=== PATIENT | male | born 1940 | race Caucasian/White ===

== ENCOUNTER → 2016-05-25 | Outpatient (CLI) | payer MEDICARE | END | disposition home or self-care (01) | LOC: GMAL 13:10 | PROVIDERS: ATTEND Family Medicine | DX: Z12.5 Encounter for screening for malignant neoplasm of prostate (principal) ==

== ENCOUNTER → 2016-11-20 | Outpatient (CLI) | payer MEDICARE | LOC: GMAL 10:46 | PROVIDERS: ATTEND Family Medicine | DX: E55.9 Vitamin D deficiency, unspecified (principal) ==

== ENCOUNTER → 2017-02-05 | Outpatient (CLI) | payer MEDICARE | END | disposition home or self-care (01) | LOC: GMAL 13:05 | PROVIDERS: ATTEND Family Medicine | DX: R22.0 Localized swelling, mass and lump, head (principal); I50.89 Other heart failure ==

== ENCOUNTER 2017-02-20 07:51 | Day surgery (SDC) | payer MEDICARE ==
[~2017-02-20 07:51] MED LIST: LACTATED RINGERS 1,000 ML ONE
[2017-02-20] MEDS ORDERED: MIDAZOLAM INJ 2 MG/2 ML VIAL ONE (08:42)
[2017-02-20] MEDS ORDERED: fentaNYL CITRATE INJ 50 MCG/ML AMP ONE (08:42)
[2017-02-20 09:32] VITALS: TEMP 97
--- NOTE | 2017-02-20 09:34 | OP ---
DATE OF PROCEDURE: 02/20/17 PREPROCEDURE DIAGNOSIS: 1. Screening colonoscopy. POSTPROCEDURE DIAGNOSIS: 1. Ileocolonic anastomosis. 2. Diverticulosis. 3. Colonic polyp. 4. Internal hemorrhoids. PROCEDURE: 1. Colonoscopy. SURGEON: Case Sharif MD SEDATION: The patient was sedated via IV propofol by the Anesthesia Department. COMPLICATIONS: No immediate complications. CONSENT: Prior to the procedure, risks, benefits and alternatives to the therapy were discussed with the patient. The risks included bleeding, infection , perforation and . The patient agreed to the procedure and signed a consent. Preprocedure anesthesia assessment and examination revealed no contraindication to sedation. Airway examination demonstrated a Mallampati class type 2, ASA grade assessment type 2. Throughout the procedure, the patient's blood pressure , pulse and oxygen saturation were monitored continuously. PROCEDURE: The patient was placed in the left lateral decubitus position and a rectal examination was performed. The rectal examination was within normal limits. The Olympus colonoscope was passed through the anus, into the rectum, traversing the colon to the level of the proximal transverse colon were an ileocolonic anastomosis was found. The scope was retracted and the mucosa was visualized. The entirety of the exam was performed with direct visualization. Retroflexion was performed in the rectum. Preparation quality was good. The withdrawal time was greater than 6 minutes. The patient tolerated the procedure well. Noted that the appendiceal orifice was not visualized as an ileocolonic anastomosis was seen from prior surgery. FINDINGS: 1. An intact ileocolonic anastomosis, [id number] was seen in the proximal transverse colon. The anastomosis was healthy appearing. 2. A small, sessile polyp in the sigmoid colon was seen, measuring 6 mm. The polyp was resected through cold snare and completely retrieved. 3. Mild to moderate diverticulosis was seen in the sigmoid colon. 4. Non-bleeding, large internal hemorrhoids were seen on retroflexion. IMPRESSION: 1. Ileocolonic anastomosis. 2. Small, sessile polyp in the sigmoid colon, resected and retrieved. 3. Mild to moderate diverticulosis in the sigmoid colon. 4. Large internal hemorrhoids. RECOMMENDATION: 1. Return home. 2. Resume diet. 3. Resume previous medications. 4. Followup pathology results. 5. If evidence of adenomatous tissue in polyp, repeat colonoscopy in five years for surveillance. 6. Return to my clinic (Dr. Baird) in case any questions or new symptomatology arises. 7. Return to referring physician as previously scheduled. 8. Findings were discussed with the patient and the patient's family. All questions were answered. #[id number] [facility]
[2017-02-20 09:52] VITALS: BP 130/65; O2SAT 97
[2017-02-20] MEDS ORDERED: LIDOCAINE 1% 10 ML VIAL INJ ONE (10:00)
[2017-02-20] MEDS ORDERED: PROPOFOL 200 MG/20 ML VIAL IV ONE (10:00)
== END 2017-02-20 09:40 | disposition home or self-care (01) ==
LOC: AMB 07:51
PROVIDERS: ATTEND Internal Medicine Gastroenterology
DX: Z12.11 Encounter for screening for malignant neoplasm of colon (principal); D12.5 Benign neoplasm of sigmoid colon; K57.30 Diverticulosis of large intestine without perforation or abscess without bleeding; K63.89 Other specified diseases of intestine; K64.8 Other hemorrhoids; E78.00 Pure hypercholesterolemia, unspecified; I10 Essential (primary) hypertension; I25.10 Atherosclerotic heart disease of native coronary artery without angina pectoris; E66.9 Obesity, unspecified; Z68.28 Body mass index [BMI] 28.0-28.9, adult; I25.2 Old myocardial infarction; Z86.010 Personal history of colon polyps; Z79.82 Long term (current) use of aspirin; Z79.899 Other long term (current) drug therapy
CPT/HCPCS: 00810; 45385; 88305; J2250; J3010; J3490; J7120

== ENCOUNTER → 2017-08-19 | Outpatient (CLI) | payer MEDICARE | LOC: GMAL 11:56 | PROVIDERS: ATTEND Family Medicine | DX: D51.3 Other dietary vitamin B12 deficiency anemia (principal); R53.82 Chronic fatigue, unspecified; E55.9 Vitamin D deficiency, unspecified; Z12.5 Encounter for screening for malignant neoplasm of prostate | CPT/HCPCS: 82306; 82607; 84443; G0103 ==

== ENCOUNTER → 2017-09-13 | Outpatient (CLI) | payer MEDICARE ==
--- NOTE | 2017-09-13 09:57 | RAD ---
EXAM DESCRIPTION: Knee,Right Complete CLINICAL HISTORY: Knee pain COMPARISON: None. TECHNIQUE: 4 views FINDINGS: Loss of medial joint space is observed. Medial femoral and tibial osteophyte formation is observed. Patellofemoral joint arthritis is noted. A small joint effusion is seen. Some chondrocalcinosis is observed in the lateral joint compartment. IMPRESSION: Tricompartmental joint degenerative changes are observed most pronounced in the medial joint compartment. Electronically signed by: Sunday Spears MD 09/13/2017 9:56 AM CDT
--- NOTE | 2017-09-13 09:58 | RAD ---
EXAM DESCRIPTION: Pelvis CLINICAL HISTORY: HIP PN COMPARISON: None. TECHNIQUE: AP pelvis FINDINGS: Degenerative changes are observed in the lower lumbar spine. Pelvis and hips are unremarkable. No fracturing is detected. Calcific atherosclerotic changes observed in the iliac and femoral vessels. IMPRESSION: No fracturing is detected. Electronically signed by: Sunday Spears MD 09/13/2017 9:57 AM CDT
== END ==
LOC: RAD 09:01
PROVIDERS: ATTEND Orthopaedic Surgery
DX: M25.561 Pain in right knee (principal); M25.551 Pain in right hip

== ENCOUNTER → 2017-12-26 | Outpatient (CLI) | payer MEDICARE ==
--- NOTE | 2017-12-26 11:45 | RAD ---
EXAM DESCRIPTION: Knee,Left Complete CLINICAL HISTORY: 77 years Male, KNEE PAIN COMPARISON: None. FINDINGS: Four views of the left knee show no acute fracture or malalignment. A small left knee joint effusion is noted. Mild degenerative changes are noted in the medial and patellofemoral compartments including slight medial joint space narrowing. Vascular calcifications are noted. IMPRESSION: Mild degenerative changes in the medial and patellofemoral compartments with a small left knee joint effusion. Electronically signed by: Mane Stanley MD 12/26/2017 11:43 AM CDT
== END ==
LOC: RAD 07:33
PROVIDERS: ATTEND Orthopaedic Surgery
DX: M25.562 Pain in left knee (principal); M12.862 Other specific arthropathies, not elsewhere classified, left knee; M25.462 Effusion, left knee

== ENCOUNTER → 2018-03-12 | Outpatient (CLI) | payer MEDICARE | LOC: LAB.O 09:04 | PROVIDERS: ATTEND Orthopaedic Surgery | DX: Z01.818 Encounter for other preprocedural examination (principal) ==

== ENCOUNTER 2018-04-08 05:51 | Inpatient (IN) | payer MEDICARE ==
--- NOTE | 2018-04-04 08:15 | HP ---
CHIEF COMPLAINT: Left knee pain. HISTORY OF PRESENT ILLNESS: Mr. Montesinos has a history of pain that he has been undergoing treatment for. Unfortunately, he has failed to gain relief and the pain he is having continues to interrupt his daily activities. He has a diagnosis of advanced arthritis and because of his failure of conservative measures, he has requested operative intervention. After discussing the risks, benefits and alternatives to that, he has given informed consent for total knee arthroplasty. PAST SURGICAL HISTORY: 1. Meniscectomy. 2. Lumbar fusion. 3. Achilles tendon repair. 4. Colonoscopy. MEDICATIONS: 1. Metoprolol. 2. Simvastatin. 3. Amlodipine. 4. Triamterene. 5. Aspirin. ALLERGIES: LISINOPRIL, LOSARTAN. CODE STATUS: Full code. IMMUNIZATIONS: Up to date. FAMILY HISTORY: None pertinent to today's complaint. SOCIAL HISTORY: The patient does not drink, smoke or use any illicit drugs. REVIEW OF SYSTEMS: Negative except as indicated in the History of Present Illness. PHYSICAL EXAMINATION: VITAL SIGNS: Blood pressure 164/84. Pulse 70. Height 5'11". Weight 214 pounds. MENTAL STATUS: The patient is awake, alert, and is able to give a good history and participate in the physical. The patient is oriented to person, place and time. SKIN: Normal tone and turgor. HEENT: Normocephalic, atraumatic. Pupils equal, round and reactive. Mucosal membranes are moist. NECK: Normal range of motion. No thyromegaly, no lymphadenopathy. CHEST: Normal respiratory excursion. CARDIAC: Regular rate and rhythm. No murmurs, rubs or gallops. MUSCULOSKELETAL: Bilateral upper extremities show full active range of motion without pain. He has intact sensation. They are warm and well perfused. There is no deformity, no crepitus. Strength is 5/5. The right lower extremity shows full range of motion of the hip. He does have some pain with range of motion of the knee as well as pain with palpation. He does have some crepitus, but does maintain full extension with flexion to 120 degrees. The left lower extremity shows no significant pain with range of motion of the hip, however, range of motion of the knee causes both crepitus and pain. The extremity is warm and well perfused. Sensation is intact. He has no varus/valgus or anterior/posterior laxity. He has severe pain with palpation diffusely. IMAGING: X-rays show advanced arthritis. ASSESSMENT: 1. Arthritis. PLAN: The plan at this point is for total knee arthroplasty. We have discussed the risks, benefits, and alternatives to that and the patient has given informed consent. #[id number] MTDD
[2018-04-08] MEDS ORDERED: VANCOMYCIN HCL INJ 1,000 MG VIAL IVPB ONE ×3 (05:54→19:25)
[2018-04-08] MEDS ORDERED: ceFAZolin SODIUM 1 GM VIAL ONE ×2 (05:54→06:28)
[2018-04-08] MEDS ORDERED: LACTATED RINGERS 1,000 ML ONE (05:54)
[2018-04-08] MEDS ORDERED: SODIUM CHL 0.9% 100ML MINI-BAG 100 ML IVPB ONE (05:54)
[2018-04-08] MEDS ORDERED: TRANEXAMIC ACID 1,000 MG/10 ML VIAL ONE ×2 (05:54→06:56)
[2018-04-08] MEDS ORDERED: SODIUM CHLORIDE 0.9% 250ML 250 ML ONE ×3 (05:55→19:24)
[2018-04-08] MEDS ORDERED: MIDAZOLAM INJ 2 MG/2 ML VIAL ONE (06:31)
[2018-04-08] MEDS ORDERED: MORPHINE SULF *EPIDURAL* 1 MG/ML VIAL ONE (06:32)
[2018-04-08] MEDS ORDERED: fentaNYL CITRATE INJ 50 MCG/ML AMP ONE (06:32)
[2018-04-08] MEDS: VANCOMYCIN HCL INJ 1,000 MG VIAL IVPB ONE ×3 (06:50→08:46)
[2018-04-08] MEDS ORDERED: SODIUM CHLORIDE 0.9% 100ML 100 ML IVPB ONE (06:56)
[2018-04-08] MEDS ORDERED: ACETAMINOPHEN IV 1000MG 100 ML ONE (07:01)
[2018-04-08] MEDS: BUPIVACAINE 0.5% 30 ML VIAL INJ ONE ×2 (07:42→08:46)
[2018-04-08] MEDS: BUPIVACAINE LIPOSOME 13.3 MG/ML VIAL INJ ONE ×2 (07:42→08:46)
[2018-04-08] MEDS: ceFAZolin SODIUM 1 GM VIAL ONE ×2 (07:42→08:46)
[2018-04-08] MEDS ORDERED: BUPIVACAINE LIPOSOME 13.3 MG/ML VIAL INJ ONE (08:00)
[2018-04-08] MEDS ORDERED: ELECTROLYTE-A 1,000 ML IVS ONE (08:53)
[2018-04-08] MEDS ORDERED: BENZOCAINE-MENTH LOZ (CEPACOL) 1 EA LOZ MT PRN (09:16)
[2018-04-08] MEDS ORDERED: MORPHINE SULFATE INJ 10 MG/ML VIAL IM PRN (09:16)
[2018-04-08] MEDS ORDERED: MORPHINE SULFATE INJ 10 MG/ML VIAL IV PRN (09:16)
[2018-04-08] MEDS ORDERED: NALOXONE HCL INJ 0.4 MG/ML VIAL IV PRN (09:16)
[2018-04-08] MEDS ORDERED: ONDANSETRON INJ 4 MG/2 ML VIAL IV PRN (09:16)
[2018-04-08] MEDS ORDERED: TRANEXAMIC ACID INJ 1,000 MG in SODIUM CHLORIDE 0.9% 100ML 100 ML IVPB ONE (09:16)
[2018-04-08] MEDS ORDERED: DEX 5% W/NACL 0.45% 1000ML 1,000 ML IVS PRN (09:16)
[2018-04-08] MEDS ORDERED: CYCLOBENZAPRINE HCL 10 MG TAB PO PRN (09:16)
[2018-04-08] MEDS ORDERED: SODIUM CHLORIDE 0.9% (FLUSH) 10 ML SYG IV PRN (09:16)
[2018-04-08] MEDS ORDERED: PROMETHAZINE HCL INJ 12.5 MG in SODIUM CHLORIDE 0.9% 50ML 50 ML IVPB PRN (09:16)
[2018-04-08] MEDS ORDERED: ZOLPIDEM TARTRATE 5 MG TAB PO PRN (09:16)
[2018-04-08] MEDS ORDERED: traMADol HCL 50 MG TAB PO PRN (09:16)
[2018-04-08] MEDS ORDERED: PROMETHAZINE HCL INJ 25 MG in SODIUM CHLORIDE 0.9% 50ML 50 ML IVPB PRN (09:16)
[2018-04-08] MEDS ORDERED: MAGNESIUM HYDROXIDE 30 ML UD PO PRN (09:16)
[2018-04-08] MEDS ORDERED: ACETAMINOPHEN 325 MG TAB PO PRN (09:16)
[2018-04-08] MEDS ORDERED: ACETAMINOPHEN 500 MG TAB PO PRN (09:16)
[2018-04-08] MEDS ORDERED: BISACODYL SUPPOSITORY 10 MG PR PRN (09:16)
[2018-04-08] MEDS ORDERED: ALUMINUM & MAGNESIUM HYDROXIDE 30 ML UD PO PRN (09:16)
[2018-04-08] MEDS ORDERED: MORPHINE PCA 1 MG/ML 100 ML BAG IVPB SCH (09:30)
[2018-04-08] MEDS ORDERED: IV SET AND CAP CHANGE INJ INJ SCH (09:30)
[2018-04-08] MEDS ORDERED: MIDAZOLAM INJ 5 MG/5 ML VIAL ONE (09:46)
[2018-04-08] MEDS ORDERED: DEXAMETHASONE INJ 10 MG/ML VIAL IV ONE (10:00)
[2018-04-08] MEDS ORDERED: LIDOCAINE 1% 10 ML VIAL INJ ONE (10:00)
[2018-04-08] MEDS ORDERED: PROPOFOL 200 MG/20 ML VIAL IV ONE (10:00)
[2018-04-08] MEDS ORDERED: raNITIdine HCL INJ 25 MG/ML VIAL IV ONE (10:00)
[2018-04-08] MEDS ORDERED: METOCLOPRAMIDE HCL INJ 10 MG/2 ML VIAL IV ONE (10:00)
[2018-04-08] MEDS ORDERED: ePHEDrine SULF 50 MG/ML IV ONE (10:00)
--- NOTE | 2018-04-08 11:27 | RAD ---
EXAM DESCRIPTION: Knee,Left 2 or More Views CLINICAL HISTORY: TKA COMPARISON: December 26, 2017 IMPRESSION: 2 views of the left knee show interval postsurgical changes from total knee arthroplasty with cement fixation of the tibial and femoral components. Soft tissue emphysema from recent surgery is seen. No complicating features are identified. Vascular calcifications are seen. Electronically signed by: Guerrero Man MD 04/08/2018 11:26 AM [facility]
[2018-04-08] MEDS ORDERED: ceFAZolin SODIUM 2 GRAMS PREMI 50 ML IVPB ONE ×2 (16:03→19:25)
[2018-04-08] MEDS: ceFAZolin SODIUM 2 GRAMS PREMI 2 GM in PREMIX BAG 1 BAG IVPB SCH ×2 (16:09→23:57)
--- NOTE | 2018-04-08 17:03 | HP ---
SUPERVISING PHYSICIAN: Mark Bales MD REASON FOR CONSULTATION: Medical management. HISTORY OF PRESENT ILLNESS: This is a 77 year-old male patient who who has a history of left knee pain. Due to this knee pain he has tried conservative measures, however, these have failed to improve his status. Therefore, he underwent elective total knee arthroplasty today. There were no intraoperative complications. He is awake and not complaining of any pain in the med/surg unit. PAST MEDICAL HISTORY: 1. Coronary artery disease 2. Hyperlipidemia. 3. Hypertension. 4. Myocardial infarction. 5. Colon rupture. 6. Erectile dysfunction. 7. Osteoarthritis. 8. Back pain. 9. Restless leg syndrome. PAST SURGICAL HISTORY: 1. Cataract removal.. 2. Umbilical hernia repair. 3. Three back surgeries. 4. Partial colectomy. 5. Appendectomy. 7. Right knee ACL repair. 8. Retrocalcaneal exostectomy of the left foot with Achilles repair. 9. Colonoscopy. MEDICATIONS: 1. Amlodipine 10 mg daily. 2. Aspirin 81 mg daily. 3. Vitamin D3 1000 units p.o. every other day. 4. Metoprolol 100 mg p.o. daily. 5. Simvastatin 40 mg p.o. daily. 6. Thiamine 1000 mg p.o. daily. 7. Triamterene HCPV every other day. ALLERGIES: LISINOPRIL, LOSARTAN. FAMILY HISTORY: Father at age 78. He also had Parkinson's disease. Mother at age 83. 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 He has a previous history of smoking but quit in 2004. Currently, he uses smokeless tobacco. He drinks socially and no illegal drug use. REVIEW OF SYSTEMS: Other than the left knee pain, he does not have any complaints. PHYSICAL EXAMINATION: VITAL SIGNS: Blood pressure 116/66. Heart rate 56, respiratory rate 16. Temperature 97.9, oxygen saturation 98%. GENERAL: 77 year-old male patient in no active distress currently. NEUROLOGIC: The patient is alert and oriented. CHEST: Lungs are clear to auscultation bilaterally. CARDIOVASCULAR: Regular rate and rhythm. Normal S1, S2. ABDOMEN: Soft, positive bowel sounds. GENITOURINARY: Exam deferred. EXTREMITIES: Lower extremities with the left knee wrapped in an kajal.and not complaining of any pain to that extremity currently. ASSESSMENT: 1. Left knee osteoarthritis status post right total knee arthroplasty. 2. Hypertension which is controlled. 3. Hyperlipidemia. PLAN: At this time, we will admit the patient and manage his medical status while he is participating in postoperative care from his knee surgery including physical therapy and pain control. I am resuming his home medications and will ensure that he has the appropriate anticoagulation that is recommended for postoperative knee surgeries. Recheck his hemoglobin in the morning and hopefully he can be discharged in the next few days after physical therapy. #[id number] [facility]
[2018-04-08] MEDS: CELECOXIB 100 MG CAP PO SCH (17:23)
[2018-04-08] MEDS: VANCOMYCIN HCL INJ 1,000 MG in SODIUM CHLORIDE 0.9% 250ML 250 ML IVPB SCH (17:23)
[2018-04-08] MEDS ORDERED: ENOXAPARIN SODIUM 30 MG/0.3 ML SYG SUBCU ONE (19:25)
[2018-04-08] MEDS: SIMVASTATIN 20 MG TAB PO SCH (20:01)
[2018-04-08] MEDS: DOCUSATE CALCIUM 240 MG CAP PO SCH (20:01)
[2018-04-08] MEDS: ENOXAPARIN SODIUM 30 MG/0.3 ML SYG SUBCU SCH (22:05)
[2018-04-08] MEDS: TEMAZEPAM 15 MG CAP PO PRN (22:19)
[2018-04-09] MEDS: VANCOMYCIN HCL INJ 1,000 MG in SODIUM CHLORIDE 0.9% 250ML 250 ML IVPB SCH (06:30)
[2018-04-09] MEDS ORDERED: ceFAZolin SODIUM 2 GRAMS PREMI 50 ML IVPB ONE (07:23)
[2018-04-09] MEDS: CELECOXIB 100 MG CAP PO SCH ×2 (07:54→17:48)
[2018-04-09] MEDS: ceFAZolin SODIUM 2 GRAMS PREMI 2 GM in PREMIX BAG 1 BAG IVPB SCH (09:03)
[2018-04-09] MEDS: CYANOCOBALAMIN 1,000 MCG TAB PO SCH (09:03)
[2018-04-09] MEDS: MAGNESIUM OXIDE 400 MG TAB PO SCH (09:04)
[2018-04-09] MEDS: ASPIRIN (ENTERIC COATED) 81 MG TAB PO SCH (09:04)
[2018-04-09] MEDS: METOPROLOL SUCCINATE XL 100 MG TAB PO SCH (09:04)
[2018-04-09] MEDS: amLODIPine BESYLATE 5 MG TAB PO SCH (09:04)
[2018-04-09] MEDS: ENOXAPARIN SODIUM 30 MG/0.3 ML SYG SUBCU SCH ×2 (12:59→23:54)
--- NOTE | 2018-04-09 16:08 | PN ---
DATE: 04/09/18 SUPERVISING PHYSICIAN: Mark Bales M.D. SUBJECTIVE: The patient is lying in his bed. He is on the CPM machine. His is at the bedside. His only complaints are for some mild acid reflux, otherwise his pain is being controlled well with his pain medications and he has no complaints of chest pain, shortness of breath, nausea, vomiting, constipation or diarrhea. OBJECTIVE: Temperature 98.5, heart rate 73, blood pressure 133/61, respiratory rate 20, O2 sat 95% on room air. RESPIRATORY: Essentially clear to auscultation bilaterally. CARDIAC: Regular rate and rhythm. GASTROINTESTINAL: Abdomen is soft, nondistended, non-tender. Bowel sounds are positive. EXTREMITIES: Bilateral pedal pulses are palpable at +2. His left knee is wrapped in an Vic bandage and his dressing is dry and intact. NEUROLOGIC: He is awake, alert and oriented times three. LABORATORY: Hemoglobin 12.0, hematocrit 35.8. All other labs and films have been reviewed via the EMR. ASSESSMENT: 1. Left knee osteoarthritis status post left total knee arthroplasty performed by Dr. Hardeep Martin, orthopedic surgeon. Postoperative day #1. 2. Hypertension, stable. 3. Hyperlipidemia. PLAN: We will continue present supportive care. He will continue with physical therapy for strengthening and conditioning. Orthopedic issues will be per Dr. Hardeep Martin, orthopedic surgeon. I have ordered Protonix due to his complaints of acid indigestion. I have encouraged good pulmonary hygiene. We will continue to monitor closely and follow as needed. #[id number] MTDD
--- NOTE | 2018-04-09 19:14 | PN ---
DATE: 04/08/18 POSTOPERATIVE CHECK SUBJECTIVE: Mr. Montesinos is doing well and his pain is well controlled. OBJECTIVE: He is afebrile. Vital signs are stable. Dressing is clean, dry and intact. ASSESSMENT: 1. Status post total knee arthroplasty. PLAN: The plan at this point is to continue on CPM and weightbearing as tolerated. #[id number] MTDD
--- NOTE | 2018-04-09 19:16 | PN ---
DATE: 04/09/18 SUBJECTIVE: Mr. Montesinos is doing well, without complaints. OBJECTIVE: He is afebrile. Vital signs are stable. Dressing is clean, dry and intact. ASSESSMENT: 1. Status post total knee arthroplasty. PLAN: The plan at this point is for him to continue on with his weightbearing as tolerated. [facility][id number] [facility]
[2018-04-09] MEDS: DOCUSATE CALCIUM 240 MG CAP PO SCH (21:00)
[2018-04-09] MEDS: SIMVASTATIN 20 MG TAB PO SCH (21:00)
[2018-04-09] MEDS: TEMAZEPAM 15 MG CAP PO PRN (21:01)
[2018-04-09] MEDS: HYDROcodone 5MG/APAP 325MG 1 EA TAB PO PRN (21:01)
[2018-04-10] MEDS: CELECOXIB 100 MG CAP PO SCH (07:25)
[2018-04-10 08:00] VITALS: BP 155/72; TEMP 98.9
[2018-04-10] MEDS: HYDROcodone 5MG/APAP 325MG 1 EA TAB PO PRN (08:35)
[2018-04-10] MEDS: METOPROLOL SUCCINATE XL 100 MG TAB PO SCH (08:36)
[2018-04-10] MEDS: ASPIRIN (ENTERIC COATED) 81 MG TAB PO SCH (08:36)
[2018-04-10] MEDS: MAGNESIUM OXIDE 400 MG TAB PO SCH (08:36)
[2018-04-10] MEDS: CYANOCOBALAMIN 1,000 MCG TAB PO SCH (08:37)
[2018-04-10] MEDS: amLODIPine BESYLATE 5 MG TAB PO SCH (08:37)
--- NOTE | 2018-04-10 08:41 | OP ---
DATE OF PROCEDURE: 04/08/18 PREOPERATIVE DIAGNOSIS: 1. Osteoarthritis of the knee. POSTOPERATIVE DIAGNOSIS: 1. Osteoarthritis of the knee. PROCEDURE: 1. Total knee arthroplasty. SURGEON: Hardeep Martin MD. FLEXIBLE MACHINING SYSTEM MACHINIST: Chad Kaye CST, SA-C. ANESTHESIA: General anesthesia. COMPLICATIONS: None. FINDINGS: Severe arthritis of the knee. INDICATION: Mr. Montesinos has a long history of knee pain that has been getting progressively worse and has been refractory to conservative measures. Because of the refractory nature of his knee pain, he has requested operative intervention. After discussing the risks, benefits and alternatives to that, the patient has given informed consent for total knee arthroplasty. PROCEDURE: The patient was brought to the Operating Room and placed in supine position. General anesthesia was induced and the patient's leg was sterilely prepped and draped. Following prepping and draping, the distal femur was exposed and using an intramedullary guide, the distal femoral cut was made. The appropriate sized cutting block was measured, pinned into place, and the anterior, posterior, and chamfer cuts were made. The ACL was transected and the tibia was subluxed. Both the medial and lateral menisci were removed. An intramedullary guide was used to make the proximal tibial cut. The appropriate sized base plate was placed and a trial polyethylene was placed. The trial femur was placed, the knee was reduced, and the knee was taken through a range of motion. The knee was stable in anterior, posterior, varus and valgus stress. The patella tracked anatomically without evidence of subluxation or dislocation. After trialing, the trial components were removed and the bony surfaces were thoroughly irrigated with saline. Following irrigation, the surfaces were dried and the final components were cemented into place. The excess cement was removed and the remaining cement was allowed to cure. The knee was again taken through a range of motion to confirm stability. The wound was then irrigated with saline and closure was performed using PDS to approximate the arthrotomy followed by closure of the subcutaneous tissues with a combination of running and interrupted Monocryl sutures. Sterile dressing was placed. The patient was awoken from anesthesia and taken to Recovery. POSTOPERATIVE PLAN: The patient will be weight-bearing as tolerated on postoperative day 1. COMPONENTS: Korrio Triathlon knee, size 5 femur, size 6 tibia, 9 mm insert. [facility][id number] [facility]
[2018-04-10] MEDS ORDERED: HCTZ 25 MG/TRIAMTERENE 37.5 MG 1 EA CAP PO SCH (09:00)
[2018-04-10] MEDS ORDERED: CHOLECALCIFEROL 2,000 IU TAB PO SCH (09:00)
[2018-04-10] MEDS ORDERED: SODIUM CHLORIDE 0.9% (FLUSH) 10 ML SYG IV SCH (09:00)
--- NOTE | 2018-04-10 09:10 | PN ---
DATE: 04/10/18 SUBJECTIVE: Mr. Montesinos is doing well. He is up to a chair and has no complaints. OBJECTIVE: Afebrile. Vital signs stable. Wound is clean. There are no signs or symptoms of infection. ASSESSMENT: Status post total knee arthroplasty. PLAN: We will likely discharge him today with therapy set up. He will followup with us in 2 weeks, but has been instructed to return immediately should any change in his condition occur. #[id number] MTDD
[2018-04-10 09:46] VITALS: O2SAT 94
[2018-04-10] MEDS: ENOXAPARIN SODIUM 30 MG/0.3 ML SYG SUBCU SCH (10:22)
--- NOTE | 2018-04-10 10:48 | DS ---
SUPERVISING PHYSICIAN: Mark Bales MD DISCHARGE DIAGNOSIS: 1. Left knee osteoarthritis status post left total knee arthroplasty performed by Dr. Hardeep Martin, orthopedic surgeon. Postoperative day #2. 2. Hypertension, stable. 3. Hyperlipidemia. HISTORY OF PRESENT ILLNESS: This is a 77-year-old male patient who has a history of left knee pain. He tried conservative measures and failed to improve his status. He underwent elective left total knee arthroplasty on the date of admission. There were no intraoperative complications. He was seen in consultation postoperatively. HOSPITAL COURSE: He went through his postoperative physical therapy without any problems. He has met those goals. He has weaned off his IV pain medications and transitioned to oral pain medications. He will be discharged home today in stable condition. DISCHARGE PLAN: The patient will be discharged home today in stable condition. He is to followup with physical therapy at [facility]'s physical therapy department. He is also to have a followup appointment with Dr. Martin within one to two weeks. He is to resume his previous home medications and cautioned to not use any NSAIDs until after completion of his Xarelto treatment. He will be given a prescription for pain medication as well as 9 additional days of 10 mg of Xarelto. He is to return to the hospital or followup with Dr. Martin for any problems or complications. DISCHARGE MEDICATIONS: 1. Triamterene/hydrochlorothiazide. 2. Simvastatin. 3. Metoprolol succinate. 4. Aspirin. 5. Amlodipine. 6. Vitamin D3. 7. Cyanocobalamin. 8. Cyclobenzaprine. 9. Hydrocodone. 10. Xarelto. [facility][id number] [facility]
[2018-04-11] MEDS ORDERED: MAGNESIUM HYDROXIDE 30 ML UD PO ONE (21:00)
[2018-04-11] MEDS ORDERED: BISACODYL SUPPOSITORY 10 MG PR ONE (21:00)
== END 2018-04-10 10:55 | disposition home or self-care (01) | DRG 470 ==
LOC: AMB 05:51 → MS 11:35
PROVIDERS: ADMIT Orthopaedic Surgery; ATTEND Nurse Practitioner Acute Care
PROC: 0SRD0J9 Replacement of Left Knee Joint with Synthetic Substitute, Cemented, Open Approach (ICD-10-PCS; principal; 2018-04-08 07:01)
DX: M17.12 Unilateral primary osteoarthritis, left knee (principal); I25.10 Atherosclerotic heart disease of native coronary artery without angina pectoris; I10 Essential (primary) hypertension; E78.5 Hyperlipidemia, unspecified; G25.81 Restless legs syndrome; I25.2 Old myocardial infarction; K21.9 Gastro-esophageal reflux disease without esophagitis; Z79.82 Long term (current) use of aspirin; Z88.8 Allergy status to other drugs, medicaments and biological substances; Z87.891 Personal history of nicotine dependence

== ENCOUNTER → 2018-11-26 | Outpatient (CLI) | payer MEDICARE ==
--- NOTE | 2018-11-27 19:49 | US ---
EXAM DESCRIPTION: Carotid Duplex: ULTRASOUND. CLINICAL HISTORY: 78 years Male CAROTID STENOSIS COMPARISON: None. TECHNIQUE: Transcutaneous scanning utilizing chaparro-scale and Doppler modes to evaluate the bilateral carotid systems and vertebral arteries. Percentage of diameter of stenosis or no stenosis recorded will be based upon NASCET criteria. FINDINGS: Peak systolic/end diastolic (CM-Sec) CCA Right 94/13 Left 97/17. ICA Right proximal 52/14, distal 75/18. Left proximal 70/17, mid 88/22. Vertebral Right 55/7 Left 32/6. ECA (PS Only) Right 133 left 131. ICA/CCA peak systolic ratio: Right 0.8 Left 0.9 ICA/CCA end diastolic ratio: Right 1.4 Left 1.3 Vertebral arteries: antegrade flow. Comments: Atherosclerotic calcifications bilateral common carotid and carotid bifurcations. Spectral broadening in the proximal left ICA. Right common carotid bulb and proximal ICA: Area and diameter stenosis less than 25%. Proximal left ICA: Area stenosis 27%, diameter stenosis 33%. IMPRESSION: 1. Doppler evaluation of the bilateral carotid systems and vertebral arteries shows no hemodynamically significant stenoses. 2. Moderate amount of plaque seen in the carotid arteries bilaterally. Bilateral vertebral arteries showed antegrade-cephalad flow. Electronically signed by: Chad Cardoza MD 11/27/2018 7:47 PM CDT
== END ==
LOC: US 10:24
PROVIDERS: ATTEND Family Medicine
DX: I65.23 Occlusion and stenosis of bilateral carotid arteries (principal)

== ENCOUNTER → 2019-06-24 | Outpatient (CLI) | payer MEDICARE | LOC: GMAL 11:34 | PROVIDERS: ATTEND Family Medicine | DX: M10.9 Gout, unspecified (principal); E78.2 Mixed hyperlipidemia; Z79.899 Other long term (current) drug therapy ==

== ENCOUNTER → 2019-10-26 | Outpatient (CLI) | payer MEDICARE | LOC: GMAL 10:28 | PROVIDERS: ATTEND Family Medicine | DX: D51.3 Other dietary vitamin B12 deficiency anemia (principal); E78.2 Mixed hyperlipidemia; I10 Essential (primary) hypertension; E55.9 Vitamin D deficiency, unspecified ==

== ENCOUNTER → 2020-01-15 | Outpatient (CLI) | payer MEDICARE ==
--- NOTE | 2020-01-16 15:12 | RAD ---
EXAM DESCRIPTION: Knee,Left Complete: CR/DR/XR. CLINICAL HISTORY: 79 years MalePAIN COMPARISON: March 2018 TECHNIQUE: 4 views AP, PA lateral, and patellar sunrise left knee standing. FINDINGS: Left total knee arthroplasty customary position and near-anatomic relationship. Bone surrounding the components is unremarkable. Minimal suprapatellar effusion. Arthrosis proximal tibiofibular joint. Vascular calcifications. No abnormal radiodense objects in the soft tissues and joint spaces. IMPRESSION: Stable alignment and positioning of left total knee arthroplasty compared to the prior study. No acute bony joint margin abnormality. Electronically signed by: Chad Cardoza MD 01/16/2020 3:11 PM [facility]
== END ==
LOC: RAD 07:45
PROVIDERS: ATTEND Orthopaedic Surgery
DX: M25.562 Pain in left knee (principal); Z96.652 Presence of left artificial knee joint